=== PATIENT | female | born 1995 | race Asian ===

== ENCOUNTER 2024-11-19 10:06 | Inpatient (IN) | payer BC, SELFPAY ==
[2024-11-19] VITALS (150 sets, daily range): BP systolic 78–161; BP diastolic 23–100; PULSE 42–139; RESP 16; TEMP 36.6; O2SAT 81–100; BMI 36.6
--- OUTSIDE RECORDS SUMMARY | 2024-11-19 10:37 | XMS_ITS | Clinical Summary ---
Author Organization [facility] Address [address] [place] [address] Care Team Providers Care Strategic Alliances Manager Name Role Phone Unavailable Primary Care Provider Unavailabl e Source Comments [facility],non-owned Affiliates and Associated Physician Practices is amultiple site organization consisting of ambulatory clinics and hospital sitesin [place], [place], [place] and [place]. This disclosure is being madepursuant to the Care Everywhere program and may not contain all information available regarding this patient. Last updated 17.[employer] [facility] Allergies No known active allergies Medications * Be aware that medications may not be up to date on this document. Alwaysverify current medications with the patient. 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 Supervision normal 1. Dating by 10 week ultrasound not consistent with LMP 2. labs normal; third-trimester labwork normal 3. Plan Pap smear . 4. S/p covid and flu vaccines; s/p Tdap 5. Anatomy complete 6. GBS positive; penicillin in labor. 2. Excessive weight gain in 1. Encouraged healthy diet, exercise. Consider walking after meals 2. Recommend 3. Consanguinity, pt and FOB are first cousins 1. 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 Appreciate MFM consult 3. Genetic counseling consult appreciated; the couple's risk of recessive conditions is low because they are not both carriers for the same conditions class information sent. Induction of labor 07/06 at 5:00 p.m.. Immunizations Immunization Administration Dates Next Due Covid [employer] primary monovalent 12+ yr 0.3mL Pur ple cap 03/11/2021 INFLUENZA VACCINE, QUADR. (F LUZONE; FLULAVAL; FLUARIX; AFLURIA QUADRIVALENT; 6MO+), 0.5 ML (IIV4) 12/17/2020 TDAP (7yrs+) 04/30/2021 Social History Tobacco Use Types Packs/Day Years Used Date Smoking Tobacco: Never Smokeless Tobacco: Never Tobacco Cessation:Counseling Given: Not Answered Alcohol Use Standard Drinks/Week Comments Not Currently 0 (1 standard drink = 0.6 oz pur e alcohol) PHQ-2 Answer Date Recorded Patient Health Questionnaire-2 Score 0 12/15/2023 Maxwell Depression Scale Answer Date Recorded Maxwell Depression Scale Total 0 08/20/2021 Last EPDS Self Harm Result Not on file 08/20 Comments No Sex and Gender Information Value Date Recorded Sex Assigned at Not on file Legal Sex Female 10:16 AM CDT Gender Identity Not on file Sexual Orientation Not on file Last Filed Vital Signs Vital Sign Reading Time Taken Comments Blood Pressure 116/72 12/15/2023 10:56 AM CDT Pulse 95 08/20/2021 1:58 PM CDT Temperature 36.4 C (97.5 F) 07/09/2021 8:27 AM CDT Respiratory Rate 18 07/09/2021 8:27 AM CDT Oxygen Saturation 96% 07/08/2021 11:49 PM CDT Inhaled Oxygen Concentration - - Weight 69.4 kg (153 lb 1.6 oz) 12/15/2023 10:56 AM CDT Height 160 cm (5' 3) 12/15/2023 10:56 AM CDT Body Mass Index 27.12 12/15/2023 10:56 AM CDT Plan of Treatment Health Maintenance Due Date Last Done Comments HEPATITIS B VACCINE (1 of 3 - 19+ 3-dose series) 09/08/2015 HPV VACCINE (1 - 3-dose SCDM series) 09/08/2023 COVID-19 VACCINE (4 - 2023-2 5 season) 2023 03/11/2021, 08/13/2020, 07/23/2020 DEPRESSION SCREENING 03/27/2024 12/15/2023, 07/12/2021 INFLUENZA VACCINE (#1) 2024 , 12/17/2020 PAP SMEAR 12/14/2026 12/15/2023, 03/03/2021 DTAP/TDAP/TD VACCINES (2 - T d or Tdap) 04/30/2031 04/30/2021 ZOSTER VACCINE (1 of 2) 2046 HEPATITIS C SCREENING Completed 12/17/2020 HIV SCREENING Completed 04/09/2021, 12/17/2020 HIB VACCINE Aged Out No longer eligi ble based on patient's age to complete this topic MENINGOCOCCAL (Group B) VACCINE SHARED DECISION-MAKING Aged Out No longer eligible based on patient's age to complete this topic MENINGOCOCCAL GROUPS A/C/Y/W VACCINE Aged Out No longer eligible b ased on patient's age to complete this topic PNEUMOCOCCAL VACCINE Aged Out No long er eligible based on patient's age to complete this topic Procedures Procedure Name Priority Date/Time Associated Diagnosis Comments PAP IG LB RFLX HPV APTIMA ASCU Routine 12/15/2023 12:42 PM CDT Encounter for well woman exam with routine gynecological exam Cervical cancer screening HIV-1 HIV-2 ANTIBODY + HIV P24 AG PANEL Routine 04/09/2021 3:21 PM CHANGE CONTROL SPECIALIST Encounter for supervision of normal first in second trimester 25 weeks gestation of HEPATITIS C ANTIBODY W RFLX PCR Routine 12/17/2020 1:42 PM CDT Encounter for supervision of normal first in first trimester 10 weeks gestation of from Last 3 Months or Most Recently Relevant to Health Maintenance Results * PAP IG LB RFLX HPV APTIMA ASCU (12/15/2023 12:42 PM CDT) Diagnosis Comment [facility] ACCOUNT BILL Comment: NEGATIVE FOR INTRAEPITHELIAL LESION OR MALIGNANCY. THIS SPECIMEN WAS RESCREENED PART OF OUR BOILERMAKING SUPERVISOR PROGRAM. Specimen Adequacy Comment [facility] ACCOUNT BILL Comment: Satisfactory for evaluation. Endocervical and/or squamous metaplastic cells (endocervical component) are present. Clinician Provided ICD10 Comment [facility] ACCOUNT BILL Comment: Z01.419 Z12.4 Performed by Comment [facility] ACCOUNT BILL Comment:Yessica Whitmore, Cyto technologist (ASCP) QC Reviewed by Comment [facility] ACCOUNT BILL Comment:Fatemeh Mohan, Cyto technologist Comment . [facility] ACCOUNT BILL Note Comment [facility] ACCOUNT BILL Comment: The Pap smear is a screening test designed to aid in the detection of premalignant and malignant conditions of the uterine cervix. It is not a diagnostic procedure and should not be used as the sole means of detecting cervical cancer. Both false-positive and false-negative reports do occur. IGLBP CPT Code Automation Comment [facility] ACCOUNT BILL Comment: This liquid based ThinPrep(R) pap test was screened with the use of an image guided system. Note Comment [facility] ACCOUNT BILL Comment: The HPV DNA reflex criteria were not met with this specimen result therefore, no HPV testing was performed. Pathology/Cytolog y PART OF UTERINE CERVIX / Unknown 12/15/2023 12:42 PM CDT 12/15/2023 Comment:Cervix Release to pa t Narrative [facility] ACCOUNT BILL - 12/21/2023 3:10 PM CDT Performed at: 01 - [facility] [address] [id number] Signs Cleaner: Alberta Moreira MD, Phone: [phone] Performed at: 02 - [facility] [address] [id number] Signs Cleaner: Go Hernandez PhD, Phone: [phone] Specimen Comment: [id number] Specimen Comment: No. of containers..01 ThinPrep Vial us Naomi Rivero RAT BREEDER-INSTRUCTIONAL MATERIALS DIRECTOR LAB - PATHOLOGY/CYTO LOGY ORDERABLES Final Result [facility] ACCOUNT BILL [address] [place] [address] * HIV-1 HIV-2 ANTIBODY + HIV P24 AG PANEL (04/09/2021 3:21 PM CHANGE CONTROL SPECIALIST) HIV Screen 4th Generation w Reflex Non Reactive Non Reactive [facility] ACCOUNT BILL Comment: HIV Negative HIV-1/HIV-2 antibodies and HIV-1 p24 antigen were NOT detected. There is no laboratory evidence of HIV infection. Blood BLOOD SPECIMEN / Unknown 04/09/2021 3:21 PM CHANGE CONTROL SPECIALIST 04/09/2021 Narrative Resulting Agency Comment Lab Testing performed at: [facility] [employer] [address] [id number] Maura Bang MD LAB - CHEMISTRY ORDERABLES Final Result Performing Organization Address [facility] de Phone Number [facility] ACCOUNT BILL [address] [place] [address] * HEPATITIS C ANTIBODY W RFLX PCR (12/17/2020 1:42 PM CDT) Hepatitis C Antibody <0.1 0.0 - 0.9 s/co ratio [facility] ACCOUNT BILL Blood BLOOD SPECIMEN / Unknown 12/17/2020 1:42 PM CDT 12/17/2020 Narrative Resulting Agency Comment Lab Testing performed at: [email or web address] [address] [id number] Maura Bang MD LAB - CHEMISTRY ORDERABLES Final Result Performing Organization Address [facility] Co de Phone Number [facility] ACCOUNT BILL [address] [place] [address] from Last 3 Months or Most Recently Relevant to Health Maintenance Insurance ANTHE[employer] Advance Directives * Full Code (Latest Code Status on File) Date Activated Date Inactivated Comments 07/06/2021 4:46 PM 07/07/2021 9:32 AM
[2024-11-19 11:25] LABS: Hematocrit 36.0 % (37.0-47.0); Hemoglobin 11.0 g/dL (12.0-15.0); Immature Granulocyte Percent A 0.7 % (0-0.5); Lymphocytes Absolute Auto 1.49 K/mm3 (0.9-3.2); Mean Corpuscular HGB Conc 30.6 g/dl (32-36); Mean Corpuscular Hemoglobin 24.9 pg (26-34); Mean Corpuscular Volume 81.6 fl (80-100); Nucleated Red Blood Cells Absolute Auto 0.000 K/mm3 (0.0-0.012); Nucleated Red Blood Cells Perc 0.0 % (0.0-0.2); Platelet Count Result 205 k/mm3 (150-375); Red Blood Count 4.41 M/mm3 (4.2-5.4); White Blood Count 7.1 K/mm3 (4.5-10.0)
--- NOTE | 2024-11-19 11:28 | LDADM ---
This patient, Kay Licona, was admitted to Labor/Delivery/Recovery 105 on 11/19/24 at 10:06. Plans for labor, pain management and were discussed with patient. Patient/family oriented to hospital policies and general routines including ID bracelet, bed and alarms, visiting hours, pain management, procedures, bathroom and other care routines, personal items, smoking policy, room service/diet and guest tray routines, infant security routines, and visiting hours. Patient/Family are encouraged to report perceived risks to care and to ask questions if they do not understand what they are told or what they should do. See OBIX for further documentation.
[2024-11-19 12:20] LABS: Syphilis IgG/IgM Antibody Non-Reactive (Nonreactive)
[2024-11-19 12:26] LABS: HIV 1/2 Ab P24 Ag Result Negative (Negative)
--- NOTE | 2024-11-19 12:55 | PM.IMHP ---
H&P: HPI History of Present Illness Date/Time: 11/19/24 12:55 Chief Complaint: induction of labor Narrative: Patient is a 29 year old who presents for induction of labor. Her has been complicated by growth restriction, which was resolved at 38 weeks. 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 She denies strong contractions, leakage of fluid or vaginal bleeding. She reports good movement. Review of Systems Review of Systems: All systems reviewed & are unremarkable except as noted in HPI and below PMFSH Family History Family History (Updated 10/30/24 @ 13:39 by Montserrat Ross RN) Other No pertinent family history Social History Social History Smoking status: Never smoker Substance use: never Lack of Transportation: No Lack of Food: Never True Current Housing: I Have Housing Concerned About Future Housing: No Difficulty Paying Gas/Electric Bills: No Difficulty Paying for Meds: No Currently Unemployed: No Education: Bachelor's Degree Difficulty w/ Childcare or Family Care: No Spiritual care concerns: No Meds Home Medications and Allergies Home Medications ?Medication ?Instructions ?Recorded ?Confirmed ?Type levothyroxine 125 mcg tablet 125 mcg PO DAILY 10/30/24 10/30/24 History (Levo-T) vit no.95-ferrous 1 tablet PO DAILY 10/30/24 10/30/24 History fumarate 28 mg-folic acid 800 mcg tablet () Allergies Allergy/AdvReac Type Severity Reaction Status Date / Time No Known Allergies Allergy Verified 10/30/24 13:49 Vital Signs Vital Signs - 24 hr 11/19/24 11:14 11/19/24 11:30 11/19/24 12:01 Pulse Rate 84 125 H Blood Pressure 115/65 109/50 L Pulse Oximetry Oxygen Delivery Room Air 11/19/24 12:02 11/19/24 12:07 11/19/24 12:12 Pulse Rate Blood Pressure Pulse Oximetry 90 96 98 Oxygen Delivery 11/19/24 12:15 11/19/24 12:17 11/19/24 12:22 Pulse Rate 81 Blood Pressure 127/77 Pulse Oximetry 99 100 Oxygen Delivery 11/19/24 12:27 11/19/24 12:31 11/19/24 12:32 Pulse Rate 81 Blood Pressure 127/57 L Pulse Oximetry 100 100 Oxygen Delivery 11/19/24 12:35 11/19/24 12:36 11/19/24 12:41 Pulse Rate Blood Pressure Pulse Oximetry 99 81 L 98 Oxygen Delivery 11/19/24 12:45 11/19/24 12:46 11/19/24 12:51 Pulse Rate 90 Blood Pressure 107/77 Pulse Oximetry 100 99 100 Oxygen Delivery Exam Const: General: comfortable and no acute distress Resp: Effort & Inspection: normal respiratory effort Cardio: Rate: regular rate Extrem: General: normal to inspection Psych: Mental Status: mental status grossly normal H&P: Results Labs Labs: Short CBC 11/19/24 Range/Units 10:55 WBC 7.1 (4.5-10.0) K/mm3 Hgb 11.0 L (12.0-15.0) g/dL Hct 36.0 L (37.0-47.0) % Plt Count 205 (150-375) k/mm3 Assessment and Plan Assessment and plan (1) Encounter for elective induction of labor: Code(s): Z34.90 - Encounter for supervision of normal , unspecified, unspecified trimester Status: Acute Assessment and Plan: - resolved growth restriction, last EFW wnl - FHR category I - cytotec x1 - anticipate vaginal delivery (2) Hypothyroidism: Code(s): E03.9 - Hypothyroidism, unspecified Status: Acute Assessment and Plan: - TSH 55 at beginning of - now well controlled on levothyroxine
[2024-11-19] MEDS: OXYTOCIN 30 UNITS/NS 500 ML 30 UNITS/500 ML BAG IV CONT (16:13)
[2024-11-19] MEDS: LACTATED RINGERS 1,000 ML 125 ML IV CONT (16:13)
--- NOTE | 2024-11-19 19:11 | P.PNAN_ITS ---
Anes - Eval Pre Procedure Procedure: Labor Epidural Date/Time: 11/19/24 19:11 Surgeon: Mendel Preop Diagnosis: Labor Pain Pre Op Diagnosis: iol Patient Data Age: 29 Gender: F Height: 1.57 m Weight: 91 kg Last Vital Signs Temp 36.6 C 11/19/24 17:25 Pulse 86 11/19/24 13:00 BP 111/58 L 11/19/24 13:00 Pulse Ox 100 11/19/24 19:08 O2 Del Method Room Air 11/19/24 11:14 Allergies Allergy/AdvReac Type Severity Reaction Status Date / Time No Known Allergies Allergy Verified 10/30/24 13:49 Home Medications ?Medication ?Instructions ?Recorded ?Confirmed ?Type levothyroxine 125 mcg tablet 125 mcg PO DAILY 10/30/24 11/19/24 History (Levo-T) vit no.95-ferrous 1 tablet PO DAILY 10/30/24 11/19/24 History fumarate 28 mg-folic acid 800 mcg tablet () Laboratory Tests 11/19/24 10:55 WBC 7.1 K/mm3 (4.5-10.0) RBC 4.41 M/mm3 (4.2-5.4) Hgb 11.0 L g/dL (12.0-15.0) Hct 36.0 L % (37.0-47.0) MCV 81.6 fl (80-100) MCH 24.9 L pg (26-34) MCHC 30.6 L g/dl (32-36) RDW 16.8 H % (11.5-14.5) Plt Count 205 k/mm3 (150-375) MPV 10.9 H fl (7.4-10.4) Immature Gran % (Auto) 0.7 H % (0-0.5) Neut % (Auto) 66.5 % (45.5-73.1) Lymph % (Auto) 20.9 % (18.3-44.2) [place] % (Auto) 10.5 H % (2.6-8.5) Eos % (Auto) 1.1 % (0-4.4) Baso % (Auto) 0.3 % (0.2-1.2) Lymph # (Auto) 1.49 K/mm3 (0.9-3.2) [place] # (Auto) 0.8 H K/mm3 (0.1-0.6) Eos # (Auto) 0.1 K/mm3 (0-0.3) Baso # (Auto) 0.0 K/mm3 (0.0-0.1) Abs Immat Gran (auto) 0.05 H K/mm3 (0.00-0.031) Absolute Neuts (auto) 4.7 K/mm3 (1.3-6.7) Absolute Nucleated RBC 0.000 K/mm3 (0.0-0.012) Nucleated RBC % 0.0 % (0.0-0.2) Syphilis IgG/IgM Ab Non-reactive (Nonreactive) HIV 1&2 Ab/P24 Ag 4thGn Negative (Negative) Blood Type O Positive Antibody Screen Negative Patient hx anesthesia problems: none Family hx anesthesia problems: none Results Review: All pre-operative results and documents have been reviewed as part of the pre- operative evaluation. [facility] Family History Family History (Updated 10/30/24 @ 13:39 by Montserrat Ross RN) Other No pertinent family history Social History Social History Smoking status: Never smoker Substance use: never Lack of Transportation: No Lack of Food: Never True Current Housing: I Have Housing Concerned About Future Housing: No Difficulty Paying Gas/Electric Bills: No Difficulty Paying for Meds: No Currently Unemployed: No Education: Bachelor's Degree Difficulty w/ Childcare or Family Care: No Spiritual care concerns: No Exam Day of Procedure 11/19/24 19:11 Patient weight: normal Heart: regular rate and rhythm Lungs: normal air movement Airway: Mallampati scale class II Neurological: alert and oriented
--- NOTE | 2024-11-19 20:41 | PM.OBPRVD ---
OB - Vaginal Delivery Note Procedure Delivery date: 11/19/24 Events: Elective Induction of Labor Induction method: Per Misoprostol Protocol Delivery augmentation: Pitocin Delivery monitor: External FHT and External Uterine Route of delivery: Episiotomy description: None Laceration Description: Perineal - 2nd Degree Delivery repair: vicryl Specimen: No Quantitative Blood Loss (ml): 100 Anesthesia type: Epidural Disposition: Floor Complications: No immediate complications Narrative: See H&P and notes for details on patient's admission and labor. She progressed to complete cervical dilation and at the appropriate time began pushing. With adequate expulsive efforts by the mother, the baby's head was delivered without difficulty. Nuchal cord was present x1 and easily reduced. The baby's shoulder was anterior and delivered under the pubic symphysis without difficulty. The posterior shoulder and the rest of the baby delivered without difficulty. The umbilical cord was doubly clamped and cut after 60 seconds of delayed cord clamping. Care of the was then assumed by the nursing staff. Baby Date of : 11/19/24 Time of : 20:28 Gestational Age by Date: 39 gender: Female presentation: vertex position: Left Occiput Anterior Placenta delivery description: Spontaneous Cord Vessel Description: 3 Vessels, Nuchal Cord, Reduced and Delayed Cord Clamping
--- NOTE | 2024-11-19 23:08 | OBPPTRN ---
Patient transferred to post room #278 via wheelchair. Support person present. Oriented to unit, room, information board, rooming in, admission packet and security measures. Patient verbalizes understanding.
[2024-11-20] MEDS: ACETAMINOPHEN 325 MG TABLET 650 MG PO ×4 (00:28→21:33)
[2024-11-20 04:00] VITALS: BP 105/60; PULSE 76; RESP 18; TEMP 36.7; O2SAT 99
[2024-11-20] MEDS: IBUPROFEN 600 MG TABLET PO ×3 (04:10→21:32)
[2024-11-20 04:41] LABS: Hematocrit 32.8 % (37.0-47.0); Hemoglobin 10.1 g/dL (12.0-15.0)
[2024-11-20 07:25] VITALS: BP 105/59; PULSE 70; RESP 18; TEMP 37; O2SAT 99
[2024-11-20] MEDS: MULTIVIT/MIN/PREN/FOL AC/IRON TABLET 1 TAB PO (07:51)
[2024-11-20] MEDS: DOCUSATE SODIUM 100 MG CAPSULE PO (07:51)
--- NOTE | 2024-11-20 07:57 | PM.OBPNVD ---
OB - PN: Subj Subjective Date/time seen: 11/20/24 07:57 Interval history: pp day 1 doing well except some abd pain, due for tylenol cont to monitor OB - PN: Obj Data Labs 11/20/24 03:56 Labs: Laboratory Results - last 24 hr 11/19/24 11/20/24 10:55 03:56 WBC 7.1 RBC 4.41 Hgb 11.0 L 10.1 L Hct 36.0 L 32.8 L MCV 81.6 MCH 24.9 L MCHC 30.6 L RDW 16.8 H Plt Count 205 MPV 10.9 H Immature Gran % (Auto) 0.7 H Neut % (Auto) 66.5 Lymph % (Auto) 20.9 [place] % (Auto) 10.5 H Eos % (Auto) 1.1 Baso % (Auto) 0.3 Lymph # (Auto) 1.49 [place] # (Auto) 0.8 H Eos # (Auto) 0.1 Baso # (Auto) 0.0 Abs Immat Gran (auto) 0.05 H Absolute Neuts (auto) 4.7 Absolute Nucleated RBC 0.000 Nucleated RBC % 0.0 Syphilis IgG/IgM Ab Non-reactive HIV 1&2 Ab/P24 Ag 4thGn Negative Blood Type O Positive Antibody Screen Negative OB - PN A/P Plan day: 1 Plan: routine care Time Spent With Patient Time: Total time spent is greater than 50% in coordination of care (as documented) at patient's floor/unit and/or counseling patient: Review of Systems Review of Systems: All systems reviewed & are unremarkable except as noted in HPI and below Exam Const: General: cooperative, healthy appearing and comfortable Chest: Chest palpation & inspection: normal inspection of the chest Resp: Effort & Inspection: normal respiratory effort Cardio: Rate: regular rate
--- NOTE | 2024-11-20 08:44 | WPDANLDPN2 ---
Anes-Prog Note L&D Date/Time: 11/20/24 08:44 Comfortable throughout: labor and delivery Neuraxial method: epidural Epidural/Spinal procedure site: clean & non-tender Neuro status: Neuro function grossly intact. Cardiovascular status: normal Respiratory status: normal Airway patency: baseline Mental status: baseline Post-Op hydration status: normal Vital Signs: Last Vital Signs Temp 36.7 C 11/20/24 04:00 Pulse 76 11/20/24 04:00 Resp 18 11/20/24 04:00 BP 105/60 11/20/24 04:00 Pulse Ox 99 11/20/24 04:00 O2 Del Method Room Air 11/19/24 11:14 Pain score (VAS): 2 (Uterine cramping) I/O: Intake & Output 11/19/24 11/20/24 11/20/24 23:59 07:59 15:59 Output Total 1100 Balance -1100 Patient feedback: Patient satisfied with anesthetic care.
--- NOTE | 2024-11-20 09:22 | PC.NURSE ---
Consulted with patient to assess needs related to . With the previous feeding would not maintain latch but mother was able to hand express and give drops of colostrum from each breast. Discussed with mother her successes, concerns and any questions she has. We reviewed working with the , supporting breast, protecting her nipples with an optimal deep latch, good positioning, and good hand washing. Encouraged understanding the benefits of skin to skin, responding to feeding cues, frequencies of feeding 8-12 times in 24 hours (approximately 2-3 hours), duration of feedings, milk production, intake/output feeding sheet and signs of adequate intake encouraging swallowing at the breast. Reviewed positioning and alignment, supporting breast, off-centered (asymmetrical latch) and leading with the chin with big, open, wide gape. latched optimally to the [right] breast in [football] position. Education given to the mother of how to visualize the suckling (with good rocking jaw motion) swallows (dropping of the lower jaw) and how to listen for drinking at the breast (the ka sound). The was [able] to maintain latch without discomfort to mother. Nipple care reviewed with optimal latch, good positioning and using clean hands when touching her breast. Resources used to facilitate learning were used from the [visual handouts/ tool/mom and baby guide]. Mother voiced understanding of the education shared, to call for assistance if the does not latch or if there is discomfort with . Reported to the Primary RN.
[2024-11-20 12:06] VITALS: BP 113/60; PULSE 78; RESP 16; TEMP 37.3; O2SAT 99
[2024-11-20 18:35] VITALS: BP 108/67; PULSE 70; RESP 24; TEMP 36.7; O2SAT 100
[2024-11-21 07:20] VITALS: BP 103/48; PULSE 70; RESP 16; TEMP 36.9; O2SAT 98
[2024-11-21] MEDS: MULTIVIT/MIN/PREN/FOL AC/IRON TABLET 1 TAB PO (07:31)
[2024-11-21] MEDS: ACETAMINOPHEN 325 MG TABLET 650 MG PO (07:31)
[2024-11-21] MEDS: IBUPROFEN 600 MG TABLET PO (07:31)
[2024-11-21] MEDS: DOCUSATE SODIUM 100 MG CAPSULE PO (07:32)
--- NOTE | 2024-11-21 08:42 | P.DS_ITS ---
DS: Admitting Diagnosis Discharge Date 11/21/2024 Admitting Diagnosis Term DS: Discharge Diagnosis Discharge Diagnosis (1) Term delivered: Code(s): O80 - Encounter for full-term uncomplicated delivery Status: Acute OB - DS: Summary OB Procedures : None OB Procedures Intrapartum: Spontaneous Vag Delivery OB Procedures: : None Peripartum Data Laceration Description: Perineal - 2nd Degree Episiotomy description: None Time Spent with Patient Time attestation: Total time spent providing and/or coordinating discharge services: Discharge Plan Discharge Discharging Clinician: Salas Hanna Patient Disposition: Home Activity: pelvic rest Diet: regular Patient Instructions: Antibiotic Form Patient Language: Malay Stand Alone Forms: General Discharge Information Follow-up/Referrals: Salas Hanna MD [Physician, MEDICAL BILLING SPECIALIST] Discharge Medications: Continued PNV no.95-ferrous fumarate-FA [] 28 mg iron- 800 mcg tablet 1 tablet PO DAILY levothyroxine [Levo-T] 125 mcg tablet 125 mcg PO DAILY Date of admission: 11/19/24 10:06 Primary Care Provider: PHYSICIAN,FACSIMILE MACHINE OPERATOR Admitting Provider: Jaxon Oglesby Attending physician on admission: Jaxon Oglesby Condition: Stable
--- NOTE | 2024-11-21 08:42 | P.PNOB_ITS ---
OB - PN: Subj Subjective Date/time seen: 11/21/24 08:42 Interval history: pp day 1 doing well except some abd pain, due for tylenol cont to monitor Patient comments: no complaints, pain well controlled and tolerating diet OB - PN: Obj Data Labs 11/20/24 03:56 OB - PN A/P Plan day: 2 Plan: routine care and discharge home Time Spent With Patient Time: Total time spent is greater than 50% in coordination of care (as documented) at patient's floor/unit and/or counseling patient: Exam 2 Const: General: comfortable and no acute distress Resp: Effort & Inspection: normal respiratory effort Auscultation: no rales, no rhonchi and no wheezes Cardio: Rate: regular rate Heart sounds: no click, no murmurs and no rubs GI: GI Palp: Yes Soft to palpation and No Tenderness to palpation present (GI) Auscultation: normal bowel sounds Extrem: General: normal to inspection, no pedal edema and no calf tenderness
--- NOTE | 2024-11-21 10:30 | PC.NURSE ---
Consulted with mother concerning needs and she shared her ability to independently latch infant optimally without pain. Mother is feeding appropriately for growth of infant and understands stimulating to eat if needed. Infant has had appropriate feedings in the last 24 hours meets the outcomes for weight, blood sugar and jaundice at this time. Infant has not had a void in over 12 hours and her Primary RN is going to give her a bottle per mom request. Advised mother to call out with her next feeding to check another latch and make sure that it is optimal. Reinforced understanding of milk production, transition of milk, signs of adequate intake, transition of stool, prevention/relief of engorgement, plugged ducts, mastitis, responsive watching for feeding cues, the different methods of stimulating infant to breastfeed 1-3 hours after the start of the last feeding, community resources, and when to call a provider using the resource of the feeding sheet along with the mom and baby guide. Mother voiced understanding of the information shared, is confident to continue effectively her at home, when to call for assistance, denies any additional assistance or education at this time. Reported to the Primary RN.
--- NOTE | 2024-11-21 14:10 | PC.NURSE ---
1345. Reviewed standard discharge information with patient including monitoring for required output, transition of stools, feeding 8-12 times every 24 hours, milk production, and follow up at [facility] and with skoog patching machine operator in the first week of life. Parents are encouraged to take the feeding log and continue to track feedings and output for the first week . Was encouraged by patient's RN to check infant's latch due to possible lip rolling. Observed mother latching to the left breast in cradle position. was able to latch, and does have a tendency to roll her bottom lip under. Reviewed with mom after the baby's chin touches the breast she can gently press down on their chin to help release the lip or use the nipple to tickle their lower lip to encourage a wide, open-mouthed yawn before latching them onto the breast.?Mom was able to acheive a deeper latch and encourage infant on her own to get her bottom lip flanged out. Mother declines nipple pain/discomfort throughout feeding. Encouraged mother to keep infant awake and nursing at the breast for as long as baby desires. Mother taught to listen for swallowing during feedings. Reviewed using the blue feeding sheet to record time and duration of feeding. Mother voiced understanding of the education shared, to call for assistance if the infant does not latch or if there is discomfort with . name/number on communication board. Reported to the Primary RN.? Reviewed standard discharge information with patient including monitoring infant for required output, transition of stools, feeding 8-12 times every 24 hours, milk production, and follow up at [facility] and with skoog patching machine operator in the first week of life. Parents are encouraged to take the feeding log and continue to track feedings and output for the first week . Offered outpatient resources with [facility] referral and Services at [place]. Patient has the Mom/Baby Guide for further education and reference for common concerns, phone numbers, and guidance on when to call the doctor. A feeding plan was added to the ?s discharge plan. Patient states that she has no further questions or concerns regarding .???
== END 2024-11-21 15:46 | disposition home or self-care (01) | DRG 807 ==
LOC: ANHOB2 11-21 08:45 → ANHLDR 11-22 09:28
PROVIDERS: Admitting Provider Obstetrics & Gynecology; Visit Provider Obstetrics & Gynecology
DX: O99.284 Endocrine, nutritional and metabolic diseases complicating childbirth (principal); Z37.0 Single live birth; Z3A.39 39 weeks gestation of pregnancy; O69.81X0 Labor and delivery complicated by cord around neck, without compression, not applicable or unspecified; O70.1 Second degree perineal laceration during delivery; Z82.79 Family history of other congenital malformations, deformations and chromosomal abnormalities
CPT/HCPCS: 36415; 85014; 85018; 85025; 86593; 86703; 86850; 86900; 86901; A9270; G0432; J2590; J2795; J7120